=== PATIENT | male | born 1955 | race Caucasian/White ===

== ENCOUNTER 2019-03-15 13:04 | Emergency (ER) | payer MEDICAID ==
[~2019-03-15] VITALS: Ht 165.1 cm; Wt 72.6 kg
--- OUTSIDE RECORDS SUMMARY | 2019-03-15 13:08 | XMS REPORT | CCD ---
Author Author ARELI MADRID Organization Unknown Address [address] [facility] [address] [place] [address] Care Team Providers Care Accounts Receivable Manager Name Role Phone MONTAGUE ER, MAGGY DO Attphys MONTAGUE ER, MAGGY DO Prisurg Allergies Allergy Code Allergy Type Reaction Status FRANNY [id number] Drug allergy Active Active Medications Unknown or Not Available. Problems Unknown or Not Available. Procedures Unknown or Not Available. Results Unknown or Not Available. Encounters Encounter Diagnosis Diagnosis Code Start Date Encounter for examination and observation following other accident [id number] 03/13/2017 Function Status Unknown or Not Available. History of Immunizations Immunization Code Date Td (adult), adsorbed 09 02/09/2001 influenza, split (incl. purified surface antigen) 15 09/30/2004 influenza, split (incl. purified surface antigen) 15 11/12/2005 influenza, split (incl. purified surface antigen) 15 10/12/2006 influenza, split (incl. purified surface antigen) 15 09/29/2007 influenza, split (incl. purified surface antigen) 15 10/05/2008 influenza, split (incl. purified surface antigen) 15 11/01/2009 Novel [id number] 12/13/2009 Social History Smoking Status Code Start Date End Date Never smoker [id number] Vital Signs Unknown or Not Available. Function Status Unknown or Not Available. Goals Unknown or Not Available. ASSESSMENTS Unknown or Not Available. Health Concerns Section Unknown or Not Available.
--- OUTSIDE RECORDS SUMMARY | 2019-03-15 13:10 | XMS REPORT ---
Author Author WALTER OSBORNE [facility] Address [address] [place], [place] [id number] Care Team Providers Care Fast Food Attendant Name Role Phone WALTER OSBORNE PCP WALTER OSBORNE PreferredProvider Allergies and Adverse Reactions Name Reaction Notes Cogentin Plan of Treatment Planned Activity Comments Planned Date Planned Time Plan/Goal CMP 04/19/2018 12:00 AM .Lipid Panel 04/19/2018 12:00 AM Bone Density 09/13/2013 12:00 AM Medications Active Name Start Date Estimated Completion Date SIG Comments chlorhexidine gluconate 0.12 % mucous membrane mouthwash Debrox 6.5 % otic drops instill 5 drops in affected ear 2 times a day Instill 5 drops in each ear BID on the first 5 days of each month for cercumen Seroquel XR 200 mg oral tablet extended release 24 hr take 1 tablet by oral route daily quetiapine 50 mg oral tablet 01/05/2014 take 1 tablet by oral route daily Ensure oral liquid 08/06/2016 Take one can by oral rout twice a day Singulair 10 mg oral tablet 09/16/2017 take 1 tablet (10 mg) by oral route once daily Thera-Tabs Oral Tablet 10/01/2017 take 1 tablet by oral route daily lorazepam 1 mg oral tablet 10/20/2017 Take one tablet prior to dental procedures. Miralax 17 gram/dose oral powder 12/22/2017 take 17 gram mixed with 8 oz. water, juice, soda, coffee or tea by oral route once daily lcwkbpga-[id number]-SW 3.5-10,000-1 mg/mL-unit/mL-% otic (ear) drops,suspension 03/10/2018 instill 4 drops into affected ear(s) by otic route 3 times per day quetiapine 200 mg oral tablet Take 1 tablet every evening for intermittent explosive do alendronate 10 mg oral tablet 08/04/2018 TAKE 1 TABLET BY MOUTH EVERY MORNING WITH 6- 8 OZ OF WATER BEFORE 1ST FOOD/DRINK OF DAY- REMAIN UPRIGHT FOR 30 MIN AFTER ADMINISTRATION montelukast 10 mg oral tablet 08/04/2018 TAKE 1 TABLET BY MOUTH ONCE DAILY FOR ALLERGIC RHINITIS lisinopril-hydrochlorothiazide 20-12.5 mg oral tablet 10/04/2018 TAKE 1 TABLET BY MOUTH ONCE DAILY FOR HTN Therems oral tablet 10/04/2018 TAKE 1 TABLET BY MOUTH ONCE DAILY FOR NUTRITIONAL SUPPLEMENT mupirocin 2 % topical ointment 11/08/2018 APPLY TO OPEN AREA ON WRISTS TWICE DAILY NEEDED COVER WITH KERLIX, SELF ADHERING WRAP WHEN OPEN AREAS PRESENT Remedy Skin Repair 1.5 % topical cream 11/08/2018 USE DIRECTED NEEDED diazepam 5 mg Oral tablet 11/09/2018 take 2 tablets (10 mg) by oral route 1 hour prior to appt may take 1 tablet 30 min prior to appt as needed for anxiety Ambien 10 mg oral tablet 12/02/2018 05/31/2019 take 1 tablet (10 mg) by oral route once daily at bedtime for 30 days mupirocin calcium 2 % topical cream 12/28/2018 apply a small amount to the affected area by topical route 3 times per day Name Start Date Expiration Date SIG Comments diazepam 10 mg oral tablet 10/12/2013 10/12/2013 Take one tablet by mouth 1 hour prior to dental/medical appointment. May reapeat additional 1/2 tabet (5 mg ) 30 minutes prior to the appoinment if needed. cephalexin 500 mg oral capsule 03/08/2014 03/18/2014 take 1 capsule (500 mg) by oral route every 6 hours for 10 days Augmentin 500-125 mg oral tablet 05/01/2014 05/08/2014 take 1 tablet by oral route every 12 hours for 7 days Cipro 500 mg oral tablet 03/10/2018 03/20/2018 take 1 tablet (500 mg) by oral route every 12 hours for 10 days Bactrim DS 800-160 mg oral tablet 12/28/2018 01/07/2019 take 1 tablet by oral route 2 times a day for 10 days Medrol (Tai) 4 mg oral tablets,dose pack 01/06/2019 01/11/2019 take as directed for 5 days Discontinued Name Start Date Discontinued Date SIG Comments lisinopril 20 mg oral tablet 09/25/2010 01/05/2014 take 1 tablet (20 mg) by oral route once daily cephalexin 500 mg oral capsule 04/09/2015 06/28/2018 take 1 capsule (500 mg) by oral route every 12 hours Problem List Description Status Onset Generalized Spacicity Active Impulse Control Active Dysphagia Active Osteopenia Active Constipation Active 08/25/2013 Osteoporosis Active Urinary Incontinence Active Functional urinary incontinence Active Profound mental retardation Active Impulse control disorder Active 03/27/2014 Essential hypertension Active 10/23/2016 Explosive personality disorder Active 10/23/2016 Vital Signs Date Time BP-Sys(mm[Hg] BP-Shelly(mm[Hg]) HR(bpm) RR(rpm) Temp WT HT HC BMI BSA BMI Percentile O2 Sat(%) 01/25/2019 4:11:00 PM 110 mmHg 62 mmHg 64 bpm 16 rpm 98 F 160 lbs 65 in 26.6251 kg/m 1.8244 m 98 % 01/09/2019 11:47:00 AM 110 mmHg 72 mmHg 82 bpm 18 rpm 98.4 F 160 lbs 66 in 25.8244 kg/m 1.84 m2 98 % 01/06/2019 10:54:00 AM 110 mmHg 74 mmHg 82 bpm 18 rpm 98.1 F 165 lbs 68 in 25.09 kg/m2 1.89 m2 98 % 01/03/2019 11:01:00 AM 112 mmHg 68 mmHg 78 bpm 16 rpm 98.4 F 160 lbs 98 % 12/28/2018 9:19:00 AM 124 mmHg 78 mmHg 82 bpm 18 rpm 98.1 F 160 lbs 66 in 25.8244 kg/m 1.8384 m 97 % 04/19/2018 1:49:00 PM 104 mmHg 70 mmHg 94 bpm 16 rpm 97.8 F 158 lbs 98 % 07/29/2017 3:33:00 PM 115 mmHg 74 mmHg 68 bpm 16 rpm 98 F 178 lbs 98 % 05/10/2017 3:35:00 PM 118 mmHg 74 mmHg 94 bpm 16 rpm 98 F 150 lbs 65 in 24.9611 kg/m 1.7665 m 97 % 10/08/2016 4:06:00 PM 88 bpm 16 rpm 96.5 F 129 lbs 65 in 21.47 kg/m2 1.64 m2 98 % 08/06/2016 10:45:00 AM 84 bpm 16 rpm 98.2 F 120.375 lbs 100 % 08/04/2016 6:47:00 AM 118 mmHg 62 mmHg 90 bpm 16 rpm 98 F 120 lbs 65 in 19.9688 kg/m 1.58 m 96 % 05/26/2016 10:28:00 AM 118 mmHg 62 mmHg 84 bpm 16 rpm 98.3 F 125 lbs 65 in 20.80 kg/m2 1.61 m2 98 % 05/14/2015 3:08:00 PM 100 mmHg 70 mmHg 80 bpm 18 rpm 97.9 F 151 lbs 65 in 25.1275 kg/m 1.7723 m 97 % 03/27/2014 10:39:00 AM 110 mmHg 64 mmHg 80 bpm 24 rpm 97.2 F 146 lbs 65 in 24.30 kg/m2 1.74 m2 98 % 01/05/2014 1:52:00 PM 118 mmHg 70 mmHg 96 bpm 20 rpm 97.3 F 150 lbs 65 in 24.9611 kg/m 1.7665 m 98 % 08/24/2013 1:30:00 PM 130 mmHg 80 mmHg 82 bpm 18 rpm 98.4 F 158 lbs 65 in 26.29 kg/m2 1.81 m2 07/17/2013 3:41:00 PM 150 mmHg 80 mmHg 120 bpm 24 rpm 97.8 F 154 lbs 65 in 25.6267 kg/m 1.7899 m 96 % 06/07/2013 10:13:00 AM 150 mmHg 70 mmHg 98 bpm 24 rpm 96.9 F 159.437 lbs 65 in 26.53 kg/m2 1.82 m2 96 % 06/28/2012 10:13:00 AM 115 mmHg 77 mmHg 82 bpm 20 rpm 135.5 lbs 65 in 22.5481 kg/m 1.6789 m 03/22/2012 9:59:00 AM 104 mmHg 64 mmHg 82 bpm 137 lbs 65 in 22.80 kg/m2 1.69 m2 95 % 12/30/2011 10:07:00 AM 118 mmHg 82 mmHg 82 bpm 141 lbs 65 in 23.4634 kg/m 1.7126 m 97 % 09/30/2011 9:51:00 AM 110 mmHg 72 mmHg 86 bpm 147 lbs 65 in 24.46 kg/m2 1.75 m2 98 % 06/11/2011 9:54:00 AM 132 mmHg 78 mmHg 110 bpm 155 lbs 98 % 02/04/2011 10:18:00 AM 132 mmHg 80 mmHg 84 bpm 161 lbs 98 % 12/25/2010 9:38:00 AM 150 mmHg 92 mmHg 84 bpm 161 lbs 09/25/2010 10:22:00 AM 140 mmHg 84 mmHg 84 bpm 98 % 09/02/2010 10:44:00 AM 150 mmHg 92 mmHg 90 bpm 158 lbs 07/18/2010 10:01:00 AM 140 mmHg 84 mmHg 90 bpm 150 lbs 96 % 07/02/2010 9:50:00 AM 150 mmHg 86 mmHg 90 bpm 153 lbs 97 % 05/30/2010 9:10:00 AM 128 mmHg 78 mmHg 76 bpm 148 lbs 98 % 05/26/2010 9:42:00 AM 142 mmHg 90 mmHg 88 bpm 148 lbs 98 % 12/04/2009 10:19:00 AM 122 mmHg 74 mmHg 76 bpm 145 lbs Social History Name Description Comments mental retardation lives in assisted living Tobacco Never smoker denies alcohol use History of Procedures Date Ordered Description Order Status 04/19/2018 12:00 AM COMPLETE CBC W/AUTO DIFF WBC Returned 12/01/2018 12:00 AM INFLUENZA A/B AG EIA Returned 07/26/2013 12:00 AM X-RAY EXAM OF ABDOMEN Reviewed 07/26/2013 12:[address] PELVIS W/O & W/DYE Reviewed 07/26/2013 12:[address] ABDOMEN W/O & W/DYE Reviewed 08/01/2013 12:00 AM CHEST X-RAY 2VW FRONTAL&LATL Reviewed 08/01/2013 12:00 AM X-RAY EXAM OF ABDOMEN Reviewed 08/04/2013 12:00 AM DXA BONE DENSITY AXIAL Reviewed 07/22/2010 12:00 AM REMOVE IMPACTED EAR WAX UNI Reviewed Results Summary Not available. History Of Immunizations Not available. History of Past Illness Name Date of Onset Comments Urinary Incontinence Dec 04 2009 10:21AM Impulse control disorder, unspecified Dec 04 2009 10:21AM Profound mental retardation Dec 04 2009 10:21AM Impulse Control Generalized Spacicity Essential Hypertension May 26 2010 9:44AM General Medical Exam, Adult May 26 2010 9:44AM Seasonal Allergies May 26 2010 9:44AM Follow-Up Examination May 26 2010 9:44AM Essential Hypertension May 30 2010 9:12AM Follow-Up Examination May 30 2010 9:12AM Impulse control disorder, unspecified May 30 2010 9:12AM Profound mental retardation May 30 2010 9:12AM Dysphagia Osteopenia Essential Hypertension Jul 02 2010 9:52AM Cerumen Impaction Jul 02 2010 9:52AM Constipation 08/25/2013 Osteoporosis Urinary Incontinence Essential Hypertension Jul 18 2010 10:03AM Cerumen Impaction Jul 18 2010 10:03AM Cerumen Impaction Jul 22 2010 10:00AM Functional urinary incontinence Profound mental retardation Impulse control disorder 03/27/2014 Essential Hypertension Sep 02 2010 10:45AM Follow-Up Examination Sep 02 2010 10:45AM Cerumen Impaction Sep 02 2010 10:45AM Essential Hypertension Sep 25 2010 10:22AM Essential Hypertension Dec 25 2010 9:37AM Impulse control disorder, unspecified Dec 25 2010 9:37AM Essential Hypertension Feb 04 2011 10:19AM Follow-Up Examination Feb 04 2011 10:19AM Cerumen Impaction Feb 04 2011 10:19AM Impulse control disorder, unspecified Feb 04 2011 10:19AM Essential hypertension 10/23/2016 Explosive personality disorder 10/23/2016 Essential Hypertension Jun 11 2011 9:53AM Impulse control disorder, unspecified Jun 11 2011 9:53AM Essential Hypertension Sep 30 2011 9:48AM Essential Hypertension Dec 30 2011 10:08AM Follow-Up Examination Dec 30 2011 10:08AM Essential Hypertension Mar 22 2012 10:01AM General Medical Exam, Adult Mar 22 2012 10:01AM Impulse control disorder, unspecified Mar 22 2012 10:01AM Cerumen Impaction Mar 22 2012 10:01AM Mental Retardation Mar 22 2012 10:01AM Essential Hypertension Jun 28 2012 10:15AM Insomnia Jun 28 2012 10:15AM Intermittent explosive disorder Jun 28 2012 10:15AM Mental Retardation Jun 28 2012 10:15AM Cerumen Impaction Jun 28 2012 10:15AM Impulse control disorder Jun 07 2013 10:13AM Urinary Incontinence Jun 07 2013 10:13AM Profound mental retardation Jun 07 2013 10:13AM Pain in joint; Knee,right Jul 17 2013 3:42PM MentalRetardation:Congenital Jul 17 2013 3:42PM Constipation Jul 26 2013 9:01AM Abdominal Pain Jul 26 2013 10:13AM Constipation Jul 26 2013 10:13AM Nonspecific (abnormal) findings on radiological and other examination of gastrointestinal tract Jul 26 2013 10:13AM Pleural Effusion Aug 01 2013 12:10PM Constipation Aug 01 2013 12:10PM Osteopenia Aug 04 2013 2:30PM Constipation Aug 24 2013 1:30PM Osteopenia Aug 24 2013 1:30PM Profound mental retardation Jan 05 2014 1:52PM Foot Contusion Jan 05 2014 1:52PM Dysphagia Mar 27 2014 10:40AM Osteoporosis Mar 27 2014 10:40AM Functional urinary incontinence Mar 27 2014 10:40AM Profound mental retardation Mar 27 2014 10:40AM Impulse control disorder Mar 27 2014 10:40AM Constipation May 14 2015 3:08PM Impulse control disorder May 14 2015 3:08PM Osteoporosis May 14 2015 3:08PM Functional urinary incontinence May 14 2015 3:08PM Profound mental retardation May 14 2015 3:08PM Slow transit constipation May 26 2016 10:29AM Impulse control disorder May 26 2016 10:29AM Dysphagia May 26 2016 10:29AM Osteopenia May 26 2016 10:29AM Urinary Incontinence May 26 2016 10:29AM Profound mental retardation May 26 2016 10:29AM Pressure sore of hip, left, stage I Aug 04 2016 6:48AM Pressure sore, stage I Aug 06 2016 10:45AM Impulse control disorder Aug 06 2016 10:45AM Profound mental retardation Aug 06 2016 10:45AM Essential Hypertension Oct 08 2016 4:07PM Constipation Oct 08 2016 4:07PM Impulse control disorder Oct 08 2016 4:07PM Functional urinary incontinence Oct 08 2016 4:07PM Profound mental retardation Oct 08 2016 4:07PM Chronic Explosive personality disorder Stable Oct 08 2016 4:07PM Encounter for routine adult health examination without abnormal findings May 10 2017 3:35PM Knee abrasion, right, initial encounter Jul 29 2017 3:33PM Unspecified fall, initial encounter Jul 29 2017 3:33PM Unspecified place in other non-institutional residence as the place of occurrence of the external cause Jul 29 2017 3:33PM Constipation Apr 19 2018 10:40AM Essential hypertension Apr 19 2018 10:40AM Dysphagia Apr 19 2018 10:40AM Prostate cancer screening Apr 19 2018 10:40AM Encounter for routine adult health examination without abnormal findings Apr 19 2018 1:51PM Essential hypertension Apr 19 2018 1:51PM Explosive personality disorder Apr 19 2018 1:51PM Impulse control disorder Apr 19 2018 1:51PM Functional urinary incontinence Apr 19 2018 1:51PM Profound mental retardation Apr 19 2018 1:51PM Cough Dec 01 2018 11:34AM Cellulitis of other specified site Dec 28 2018 9:23AM Cellulitis of face Jan 03 2019 11:01AM Tinea pedis of both feet Jan 03 2019 11:01AM Cellulitis of face Jan 06 2019 10:54AM Allergic angioedema, initial encounter Jan 06 2019 10:54AM Cellulitis of face Jan 09 2019 11:49AM Encounter for routine adult health examination without abnormal findings Jan 25 2019 4:12PM Essential hypertension Jan 25 2019 4:12PM Explosive personality disorder Jan 25 2019 4:12PM Impulse control disorder Jan 25 2019 4:12PM Functional urinary incontinence Jan 25 2019 4:12PM Profound mental retardation Jan 25 2019 4:12PM Payers Insurance Name Company Name Plan Name Plan Number Policy Number Policy Group Number Start Date [employer] Better [employer] - RHC [employer] - RHC [id number] N/A [place] Prog [id number] N/A [employer] - [place] [employer] [place] [id number] N/A [facility] - [facility] - [facility] Plan [facility] Comm [id number] Thursday, 2012 [employer] - [place] [employer] [place] [id number] N/A [employer] Better [employer] [id number] N/A History of Encounters Visit Date Visit Type Provider 01/24/2019 Office visit WALTER YOUSSEF 01/09/2019 Office visit WALTER YOUSSEF 01/06/2019 Office visit WALTER YOUSSEF 01/03/2019 Office visit WALTER YOUSSEF 12/28/2018 Office visit WALTER YOUSSEF 12/01/2018 Office visit WALTER YOUSSEF 04/19/2018 Office visit WALTER YOUSSEF 07/29/2017 Office visit WALTER YOUSSEF 05/10/2017 Office visit WALTER YOUSSEF 10/08/2016 Office visit WALTER YOUSSEF 08/06/2016 Office visit WALTER YOUSSEF 07/30/2016 Office visit WALTER YOUSSEF 05/26/2016 Office visit WALTER YOUSSEF 05/14/2015 Office visit WALTER YOUSSEF 03/27/2014 Office visit WALTER YOUSSEF 01/05/2014 Office visit WALTER YOUSSEF 08/24/2013 Office visit WALTER OSBORNE PA 07/17/2013 Office visit WALTER OSBORNE PA 06/07/2013 Office visit WALTER OSBORNE PA 06/28/2012 Office visit WALTER OSBORNE PA 03/22/2012 Office visit WALTER OSBORNE PA 12/30/2011 Office visit WALTER OSBORNE PA 09/30/2011 Office visit WALTER OSBORNE PA 06/11/2011 Office visit Walter Osborne PA-C 05/12/2011 Office visit Walter Osborne PA-C 02/04/2011 Office visit Walter Osborne PA-C 12/25/2010 Office visit Walter Osborne PA-C 09/25/2010 Office visit Walter Osborne PA-C 09/02/2010 Office visit Walter Osborne PA-C 07/22/2010 Office visit Walter Osborne PA-C 07/18/2010 Office visit Walter Osborne PA-C 07/07/2010 Office visit Walter Osborne PA-C 07/02/2010 Office visit Walter Osborne PA-C 05/30/2010 Office visit Walter Osborne PA-C 05/26/2010 Office visit Walter Osborne PA-C 12/04/2009 Office visit Walter Osborne PA-C
--- OUTSIDE RECORDS SUMMARY | 2019-03-15 13:10 | XMS REPORT ---
Author Author WALTER OSBORNE [facility] Address [address] [place], [place] [id number] Care Team Providers Care Cleater Name Role Phone WALTER OSBORNE PCP WALTER [...] or tea by oral route once daily ekmfrufy-kgplmwgao-ZA 3.5-10,000-1 mg/mL-unit/mL-% otic (ear) drops,suspension 03/10/2018 instill [...] HC BMI BSA BMI Percentile O2 Sat(%) 01/09/2019 11:47:00 AM 110 mmHg 72 mmHg 82 bpm 18 rpm 98.4 F 160 lbs 66 in 25.8244 kg/m 1.8384 m 98 % 01/06/2019 10:54:00 AM 110 mmHg [...] Cellulitis of face Jan 09 2019 11:49AM Payers Insurance Name Company Name Plan Name Plan Number Policy Number Policy Group Number Start Date [employer] Better [employer] - RHC [employer] - RHC [id number] N/A [place] [employer] [place] Pro[place] [id number] N/A [employer] - [place] State Plan [employer] - [place] State Plan [id number] N/A [facility] - RHC - [facility] Plan [facility] RHC Comm [id number] Thursday, 2012 [employer] - [place] State Plan [employer] - [place] State Plan [id number] N/A [employer] Better [employer] Better [employer] [id number] N/A History of Encounters Visit Date Visit Type Provider 01/09/2019 Office visit WALTER YOUSSEF 01/06/2019 Office [...] visit WALTER YOUSSEF 08/24/2013 Office visit WALTER YOUSSEF 07/17/2013 Office visit WALTER YOUSSEF 06/07/2013 Office visit WALTER YOUSSEF 06/28/2012 Office visit WALTER YOUSSEF 03/22/2012 Office visit WALTER YOUSSEF 12/30/2011 Office visit WALTER YOUSSEF 09/30/2011 Office visit WALTER OSBORNE PA 06/11/2011 [...] visit Walter Osborne PA-C 05/30/2010 Office visit Wlater Osborne PA-C 05/26/2010 Office visit Walter Osborne PA-C 12/04/2009 Office visit Walter YOUSSEF-C
--- OUTSIDE RECORDS SUMMARY | 2019-03-15 13:11 | XMS REPORT ---
Author Author WALTER OSBORNE [facility] Address [address] [place], [place] [id number] Care Team Providers Care Special Collections Librarian Name Role Phone WALTER OSBORNE PCP WALTER [...] or tea by oral route once daily fljmvnbh-wngmiklac-GT 3.5-10,000-1 mg/mL-unit/mL-% otic (ear) drops,suspension 03/10/2018 instill [...] once daily at bedtime for 30 days Bactrim DS 800-160 mg oral tablet 12/28/2018 01/07/2019 take 1 tablet by oral route 2 times a day for 10 days mupirocin calcium 2 % topical cream 12/28/2018 apply a small amount to the affected area by topical route 3 times per day Medrol (Tai) 4 mg oral tablets,dose pack 01/06/2019 01/11/2019 take as directed for 5 days Name Start Date Expiration Date SIG Comments [...] route every 12 hours for 10 days Discontinued Name Start Date Discontinued Date [...] HC BMI BSA BMI Percentile O2 Sat(%) 01/06/2019 10:54:00 AM 110 mmHg 74 mmHg 82 bpm 18 rpm 98.1 F 165 lbs 68 in 25.0879 kg/m 1.8949 m 98 % 01/03/2019 11:01:00 AM 112 mmHg [...] angioedema, initial encounter Jan 06 2019 10:54AM Payers Insurance Name Company Name Plan Name Plan Number Policy Number Policy Group Number [facility] [id number] N/A [place] [facility] [place] [id number] N/A [employer] - [place] State Plan [employer] [place] [id number] N/A [facility] [id number] Thursday, 2012 [employer] - [place] State [place] [employer] [place] [id number] N/A History of Encounters Visit Date Visit Type Provider 01/06/2019 Office visit WALTER OSBORNE PA 01/03/2019 Office visit WALTER OSBORNE PA 12/28/2018 Office visit WALTER OSBORNE PA 12/01/2018 Office visit WALTER OSBORNE PA 04/19/2018 Office visit WALTER OSBORNE PA 07/29/2017 Office visit WALTER OSBORNE PA 05/10/2017 Office visit WALTER OSBORNE PA 10/08/2016 Office visit WALTER OSBORNE PA 08/06/2016 Office visit WALTER OSBORNE PA 07/30/2016 Office visit WALTER OSBORNE PA 05/26/2016 Office visit WALTER OSBORNE PA 05/14/2015 Office visit WALTER OSBORNE PA 03/27/2014 Office visit WALTER OSBORNE PA 01/05/2014 Office visit WALTER OSBORNE PA 08/24/2013 Office visit WALTER OSBORNE PA 07/17/2013 [...] visit Walter Osborne PA-C 09/02/2010 Office visit Wlater Osborne PA-C 07/22/2010 Office visit Walter Osborne PA-C 07/18/2010 Office visit Walter Osborne PA-C 07/07/2010 Office visit Walter Osborne PA-C 07/02/2010 Office visit Walter Osborne PA-C 05/30/2010 Office visit Walter Osborne PA-C 05/26/2010 Office visit Walter Osborne PA-C 12/04/2009 Office visit Walter Osborne PA-C
--- OUTSIDE RECORDS SUMMARY | 2019-03-15 13:12 | XMS REPORT ---
Author Author JOSSY OSBORNE [facility] Address [address] [place], [place] [id number] Care Team Providers Care Child Psychologist Name Role Phone JOSSY OSBORNE PCP JOSSY OSBORNE PreferredProvider Allergies and Adverse Reactions Name [...] or tea by oral route once daily owjdraxm-jvffegcbm-MN 3.5-10,000-1 mg/mL-unit/mL-% otic (ear) drops,suspension 03/10/2018 instill [...] HC BMI BSA BMI Percentile O2 Sat(%) 12/28/2018 9:19:00 AM 124 mmHg 78 mmHg [...] other specified site Dec 28 2018 9:23AM Payers Insurance Name Company Name Plan Name Plan Number Policy Number Policy Group Number Start Date [employer] Better Health [employer] Better [employer] [id number] N/A [place] [id number] N/A [facility] [place] [employer] - [facility] State Plan [id number] N/A [facility] Plan [facility] Comm [id number] Thursday, 2012 [employer] - [facility] - [place] State Plan [employer] - [facility] State Plan [id number] N/A History of Encounters Visit Date Visit Type Provider 12/28/2018 Office visit JOSSY YOUSSEF 12/01/2018 Office visit JOSSY YOUSSEF 04/19/2018 Office visit JOSSY YOUSSEF 07/29/2017 Office visit JOSSY OSBORNE PA 05/10/2017 Office visit JOSSY OSBORNE PA 10/08/2016 Office visit JOSSY OSBORNE PA 08/06/2016 Office visit JOSSY OSBORNE PA 07/30/2016 Office visit JOSSY OSBORNE PA 05/26/2016 Office visit JOSSY OSBORNE PA 05/14/2015 Office visit JOSSY OSBORNE PA 03/27/2014 Office visit JOSSY OSBORNE PA 01/05/2014 Office visit JOSSY OSBORNE PA 08/24/2013 Office visit JOSSY OSBORNE PA 07/17/2013 Office visit JOSSY OSBORNE PA 06/07/2013 Office visit JOSSY OSBORNE PA 06/28/2012 Office visit JOSSY OSBORNE PA 03/22/2012 Office visit JOSSY OSBORNE PA 12/30/2011 Office visit JOSSY OSBORNE PA 09/30/2011 Office visit JOSSY OSBORNE PA 06/11/2011 Office visit Jossy Osborne PA-C 05/12/2011 Office visit Jossy Osborne PA-C 02/04/2011 Office visit Jossy Osborne PA-C 12/25/2010 Office visit Jossy Osobrne PA-C 09/25/2010 Office visit Jossy Osborne PA-C 09/02/2010 Office visit Jossy Osborne PA-C 07/22/2010 Office visit Jossy Osborne PA-C 07/18/2010 Office visit Jossy Osborne PA-C 07/07/2010 Office visit Jossy Osborne PA-C 07/02/2010 Office visit Jossy Osborne PA-C 05/30/2010 Office visit Jossy Osborne PA-C 05/26/2010 Office visit Jossy Osborne PA-C 12/04/2009 Office visit Jossy Osborne PA-C
--- OUTSIDE RECORDS SUMMARY | 2019-03-15 13:12 | XMS REPORT ---
Author Author WALTER OSBORNE [facility] Address [address] [place], [place] [id number] Care Team Providers Care Shredder/Granulator Operator Name Role Phone WALTER OSBORNE PCP WALTER [...] or tea by oral route once daily nakoizdc-hewthgjah-LY 3.5-10,000-1 mg/mL-unit/mL-% otic (ear) drops,suspension 03/10/2018 instill [...] specified site Dec 28 2018 9:23AM Cellulitis Jan 03 2019 11:01AM Tinea pedis Jan 03 2019 11:01AM Cellulitis of face Jan 06 2019 10:54AM Allergic angioedema, initial encounter Jan 06 2019 10:54AM Payers Insurance Name Company Name Plan Name Plan Number Policy Number Policy Group Number Start Date [facility] [id number] N/A [place] [facility] [place] Prog [id number] N/A [employer] - [place] State Plan [employer] - [place] State Plan [id number] N/A [facility] [id number] Thursday, 2012 [employer] - [place] [employer] [place] Plan [id number] N/A History of Encounters Visit Date Visit Type Provider 01/06/2019 Office visit WALTER OSBORNE PA 01/03/2019 Office visit WALTER OSBORNE PA 12/28/2018 Office visit WALTER OSBORNE PA 12/01/2018 Office visit WALTER OSBORNE PA 04/19/2018 Office visit WALTER OSBORNE PA 07/29/2017 Office visit WALTER OSBORNE PA 05/10/2017 Office visit WALTER OSBORNE PA 10/08/2016 Office visit WALTER OSBORNE PA 08/06/2016 Office visit WALTER YOUSSEF 07/30/2016 Office visit WALTER OSBORNE PA 05/26/2016 Office visit AWLTER OSBORNE PA 05/14/2015 Office visit WALTER OSBORNE [...]
--- OUTSIDE RECORDS SUMMARY | 2019-03-15 13:13 | XMS REPORT ---
Author Author JOSSY OSBORNE [facility] Address [address] [place], [place] [id number] Care Team Providers Care Winder Fixer Name Role Phone JOSSY OSBORNE PCP JOSSY OSBORNE PreferredProvider Allergies and Adverse Reactions Name Reaction Notes Cogentin Plan of Treatment Planned Activity Comments Planned Date Planned Time Plan/Goal CMP 04/19/2018 12:00 AM .Lipid Panel 04/19/2018 12:00 AM INFLUENZA A & B 12/01/2018 12:00 AM Bone Density 09/13/2013 12:00 AM [...] or tea by oral route once daily cdufseez-vjuamftfv-EP 3.5-10,000-1 mg/mL-unit/mL-% otic (ear) drops,suspension 03/10/2018 instill 4 drops into affected ear(s) by otic route 3 times per day Ambien 10 mg oral tablet 06/27/2018 12/24/2018 take 1 tablet (10 mg) by oral route once daily at bedtime for 30 days quetiapine 200 mg oral tablet Take 1 [...] prior to appt as needed for anxiety Name Start Date Expiration Date SIG Comments [...] HC BMI BSA BMI Percentile O2 Sat(%) 04/19/2018 1:49:00 PM 104 mmHg 70 mmHg [...] AM COMPLETE CBC W/AUTO DIFF WBC Returned 07/26/2013 12:00 AM X-RAY EXAM OF [...] 2018 1:51PM Cough Dec 01 2018 11:34AM Payers Insurance Name Company Name Plan Name Plan Number Policy Number Policy Group Number Start Date [facility] [place] State Plan [facility] State Plan [id number] N/A [place] Medical [place] Program [place] Prog [id number] N/A [facility] [place] State Plan [facility] State Plan [id number] N/A [facility] [id number] Thursday, 2012 History of Encounters Visit Date Visit Type Provider 12/01/2018 Office visit JOSSY YOUSSEF 04/19/2018 Office visit JOSSY YOUSSEF 07/29/2017 Office visit JOSSY YOUSSEF 05/10/2017 Office visit JOSSY YOUSSEF 10/08/2016 Office visit JOSSY YOUSSEF 08/06/2016 Office visit JOSSY YOUSSEF 07/30/2016 Office visit JOSSY YOUSSEF 05/26/2016 Office visit JOSSY YOUSSEF 05/14/2015 Office visit JOSSY YOUSSEF 03/27/2014 Office visit JOSSY YOUSSEF 01/05/2014 Office visit JOSSY YOUSSEF 08/24/2013 Office visit JOSSY YOUSSEF 07/17/2013 Office visit JOSSY YOUSSEF 06/07/2013 Office visit JOSSY YOUSSEF 06/28/2012 Office visit JOSSY OSBORNE PA 03/22/2012 Office visit JOSSY OSBORNE PA 12/30/2011 Office visit JOSSY OSBORNE PA 09/30/2011 Office visit JOSSY OSBORNE PA 06/11/2011 Office visit Jossy Osborne PA-C 05/12/2011 Office visit Jossy Osborne PA-C 02/04/2011 Office visit Jossy Osborne PA-C 12/25/2010 Office visit Jossy Osborne PA-C 09/25/2010 Office visit Jossy Osborne PA-C 09/02/2010 Office visit Jossy Osborne PA-C 07/22/2010 Office visit Jossy Osborne PA-C 07/18/2010 Office visit Jossy Osborne PA-C 07/07/2010 Office visit Jossy Osborne PA-C 07/02/2010 Office visit Jossy Osborne PA-C 05/30/2010 Office visit Jossy Osborne PA-C 05/26/2010 Office visit Jossy Osborne PA-C 12/04/2009 Office visit Jossy Osborne PA-C
--- OUTSIDE RECORDS SUMMARY | 2019-03-15 13:14 | XMS REPORT ---
Author Author JOSSY NORIEGA [facility] Address [address] [place], [place] [phone] Care Team Providers Care Interventional Radiology Rn Name Role Phone JOSSY NORIEGA PCP JOSSY NORIEGA PreferredProvider Allergies and Adverse Reactions Name Reaction Notes Cogentin Plan of Treatment Planned Activity Comments Planned Date Planned Time Plan/Goal CBC with Differential 04/19/2018 12:00 AM CMP 04/19/2018 12:00 AM .Lipid Panel 04/19/2018 12:00 AM Bone Density 09/13/2013 12:00 AM Medications Active Name Start Date Estimated Completion Date SIG Comments chlorhexidine gluconate 0.12 % mucous membrane mouthwash Debrox 6.5 % otic drops instill 5 drops in affected ear 2 times a day Instill 5 drops in each ear BID on the first 5 days of each month for cercumen mupirocin 2 % topical ointment Seroquel XR 200 mg oral tablet extended release 24 hr take 1 tablet by oral route daily quetiapine 50 mg oral tablet 01/05/2014 take 1 tablet by oral route daily cephalexin 500 mg oral capsule 04/09/2015 take 1 capsule (500 mg) by oral route every 12 hours Ensure oral liquid 08/06/2016 Take one can by oral rout twice a day alendronate 10 mg oral tablet 09/07/2017 take 1 tablet (10 mg) by oral route once daily in the morning, at least 30 min before first food, beverage, or medication of day Singulair 10 mg oral tablet 09/16/2017 take 1 tablet (10 mg) by oral route once daily lisinopril-hydrochlorothiazide 20-12.5 mg oral tablet 10/01/2017 take 1 tablet by oral route once daily Thera-Tabs Oral Tablet 10/01/2017 take 1 tablet by oral route daily lorazepam 1 mg oral tablet 10/20/2017 Take one tablet prior to dental procedures. Miralax 17 gram/dose oral powder 12/22/2017 take 17 gram mixed with 8 oz. water, juice, soda, coffee or tea by oral route once daily Ambien 10 mg oral tablet 02/10/2018 08/09/2018 take 1 tablet (10 mg) by oral route once daily at bedtime for 30 days diazepam 5 mg Oral tablet 03/04/2018 take 2 tablets (10 mg) by oral route 1 hour prior to appt may take 1 tablet 30 min prior to appt as needed for anxiety zvyhfaml-kkjbsosky-TR 3.5-10,000-1 mg/mL-unit/mL-% otic (ear) drops,suspension 03/10/2018 instill 4 drops into affected ear(s) by otic route 3 times per day Name Start [...] (20 mg) by oral route once daily Problem List Description Status Onset Generalized Spacicity [...] of Procedures Date Ordered Description Order Status 07/26/2013 12:00 AM X-RAY EXAM OF ABDOMEN [...] Profound mental retardation Apr 19 2018 1:51PM Payers Insurance Name Company Name Plan Name Plan Number Policy Number Policy Group Number Start Date [employer] [place] [employer] [place] [id number] N/A [place] Medical [place] Program [place] Prog [id number] N/A [employer] - [place] [employer] [place] State Plan [id number] N/A [facility] - RHC - [facility] Plan [facility] [id number] Thursday, 2012 History of Encounters Visit Date Visit Type Provider 04/19/2018 Office visit JOSSY YOUSSEF 07/29/2017 Office [...] visit JOSSY YOUSSEF 06/28/2012 Office visit JOSSY YOUSSEF 03/22/2012 Office visit JOSSY YOUSSEF 12/30/2011 Office visit JOSSY YOUSSEF 09/30/2011 Office visit JOSSY NORIEGA PA 06/11/2011 Office visit Jossy Noriega PA-C 05/12/2011 Office visit Jossy YOUSSEF-C 02/04/2011 Office visit Jossy YOUSSEF-C 12/25/2010 Office visit Jossy YOUSSEF-C 09/25/2010 Office visit Jossy YOUSSEF-C 09/02/2010 Office visit Jossy Noriega PA-C 07/22/2010 Office visit Jossy YOUSSEF-C 07/18/2010 Office visit Jossy TYSONC 07/07/2010 Office visit Jossy TYSONC 07/02/2010 Office visit Jossy TYSONC 05/30/2010 Office visit Jossy TYSONC 05/26/2010 Office visit Jossy YOUSSEF-C 12/04/2009 Office visit Jossy Noriega PA-C
--- OUTSIDE RECORDS SUMMARY | 2019-03-15 13:14 | XMS REPORT ---
Author JOSSY Perez [facility] Address [address] [place], [place] [id number] Care Team Providers Care Conveyor Line Battery Charger Name Role Phone JOSSY OSBORNE PCP Unavailable Allergies and Adverse Reactions Name Reaction Notes Cogentin Plan of Treatment Planned Activity Comments Planned Date Planned Time Plan/Goal Bone Density 09/13/2013 12:00 AM Medications Active [...] take 1 tablet by oral route daily diazepam 5 mg oral tablet 06/08/2013 take 2 tablets (10 mg) by oral route 1 hour prior to appt may take 1 tablet 30 min prior to appt as needed for anxiety Miralax 17 gram/dose oral powder 01/05/2014 take 17 gram mixed with 8 oz. water, juice, soda, coffee or tea by oral route once daily quetiapine 50 mg oral tablet 01/05/2014 take 1 tablet by oral route daily cephalexin 500 mg oral capsule 04/09/2015 take 1 capsule (500 mg) by oral route every 12 hours Ambien 10 mg oral tablet 06/08/2016 12/05/2016 take 1 tablet (10 mg) by oral route once daily at bedtime for 30 days Ensure oral liquid 08/06/2016 Take one can by oral rout twice a day lorazepam 1 mg oral tablet 09/02/2016 Take one tablet prior to dental procedures. Singulair 10 mg Oral Tablet 10/16/2016 take 1 tablet (10 mg) by oral route once daily alendronate 10 mg Oral tablet 10/16/2016 take 1 tablet (10 mg) by oral route once daily in the morning, at least 30 min before first food, beverage, or medication of day Thera-Tabs Oral Tablet 10/16/2016 take 1 tablet by oral route daily lisinopril-hydrochlorothiazide 20-12.5 mg oral tablet 10/16/2016 take 1 tablet by oral route once daily Name Start Date Expiration Date SIG Comments [...] route every 12 hours for 7 days Discontinued Name Start Date Discontinued Date SIG Comments lisinopril 20 mg oral tablet 09/25/2010 01/05/2014 take 1 tablet (20 mg) by oral route once daily Problem List Description Status Onset Generalized Spacicity Active Impulse Control Active Dysphagia Active Osteopenia Active Constipation Active 08/25/2013 Osteoporosis Active Urinary Incontinence Active Functional urinary incontinence Active Profound mental retardation Active Impulse control disorder Active 03/27/2014 Essential Hypertension Active 10/23/2016 Explosive personality disorder Active 10/23/2016 Vital Signs Date Time BP-Sys(mm[Hg] BP-Shelly(mm[Hg]) HR(bpm) RR(rpm) Temp WT HT HC BMI BSA BMI Percentile O2 Sat(%) 10/08/2016 4:06:00 PM 88 bpm 16 rpm [...] IMPACTED EAR WAX UNI Reviewed Results Summary Data and Description Results 07/15/2014 9:10 AM GLUCOSE 97.0 mg/dLSODIUM 146.0 mmol/LPOTASSIUM 4.70 mmol/ LCHLORIDE 107.0 mmol/LCO2 29.0 mmol/LBUN 27.0 mg/dLCREATININE 0.90 mg/dLSGOT/ AST 16.0 IU/LSGPT/ALT 20.0 IU/LALK PHOS 97.0 IU/LTOTAL PROTEIN 7.90 g/dLALBUMIN 4.30 g/dLTOTAL BILI 0.80 mg/dLCALCIUM 9.80 mg/dLAGE 58 GFR NonAA 87 GFR AA 105 eGFR 60 eGFR AA* 60 PSA TOTAL 0.490 ng/mLWBC 6.0 RBC 5.16 HGB 14.50 g/dLHCT 44.20 %MCV 86.0 fLMCH 28.10 pgMCHC 32.80 g/dLRDW SD 48 RDW CV 15.20 %MPV 9.80 fLPLT 323 NRBC# 0.00 NRBC% 0.0 History Of Immunizations Not available. History of [...] disorder, unspecified Feb 04 2011 10:19AM Essential Hypertension 10/23/2016 Explosive personality disorder 10/23/2016 Essential Hypertension [...] personality disorder Stable Oct 08 2016 4:07PM Payers Insurance Name Company Name Plan Name Plan Number Policy Number Policy Group Number Start Date [facility] [place] State Plan [facility] State Plan [id number] N/A [place] Medical [place] Program [place] Prog [id number] N/A [employer] - [facility] [place] State Plan [facility] State Plan [id number] N/A [facility] Comm [id number] Thursday, 2012 History of Encounters Visit Date Visit Type Provider 10/08/2016 Office visit JOSSY OSBORNE PA 08/06/2016 [...] JOSSY OSBORNE PA 06/28/2012 Office visit JOSSY OSBOREN PA 03/22/2012 Office visit JOSSY OSBORNE PA [...]
--- OUTSIDE RECORDS SUMMARY | 2019-03-15 13:15 | XMS REPORT ---
Author JOSSY Perez [facility] Address [address] [place], [place] [id number] Care Team Providers Care Lead Developer Name Role Phone JOSSY NORIEGA PCP Unavailable JOSSY NORIEGA PreferredProvider Unavailable Allergies and Adverse Reactions Name Reaction [...] prior to appt as needed for anxiety quetiapine 50 mg oral tablet 01/05/2014 take [...] 1 tablet by oral route once daily Miralax 17 gram/dose oral powder 11/19/2016 take 17 gram mixed with 8 oz. water, juice, soda, coffee or tea by oral route once daily Ambien 10 mg oral tablet 03/31/2017 09/27/2017 take 1 tablet (10 mg) by oral route once daily at bedtime for 30 days Name Start Date Expiration Date SIG [...] HC BMI BSA BMI Percentile O2 Sat(%) 07/29/2017 3:33:00 PM 115 mmHg 74 mmHg [...] the external cause Jul 29 2017 3:33PM Payers Insurance Name Company Name Plan Name Plan Number Policy Number Policy Group Number Start Date [facility] - [facility] [place] State Plan [facility] State Plan [id number] N/A [place] Medical [place] Program [place] Prog [id number] N/A [facility] - [facility] [place] State Plan [facility] [place] Plan [id number] N/A [facility], [facility] Plan [facility] Comm [id number] Thursday, 2012 History of Encounters Visit Date Visit Type Provider 07/29/2017 Office visit JOSSY YOUSSEF 05/10/2017 Office visit JOSSY YOUSSEF 10/08/2016 Office visit JOSSY YOUSSEF 08/06/2016 Office visit JOSSY YOUSSEF 07/30/2016 Office visit JOSSY YOUSSEF 05/26/2016 Office visit JOSSY YOUSSEF 05/14/2015 Office visit JOSSY NORIEGA PA 03/27/2014 Office visit JOSSY NORIEGA PA 01/05/2014 Office visit JOSSY NORIEGA PA 08/24/2013 Office visit JOSSY NORIEGA PA 07/17/2013 Office visit JOSSY NORIEGA PA 06/07/2013 Office visit JOSSY NORIEGA PA 06/28/2012 Office visit JOSSY NORIEGA PA 03/22/2012 Office visit JOSSY NORIEGA PA 12/30/2011 Office visit JOSSY NORIEGA PA 09/30/2011 Office visit JOSSY NORIEGA PA 06/11/2011 Office visit Jossy Noriega PA-C 05/12/2011 Office visit Jossy Noriega PA-C 02/04/2011 Office visit Jossy Noriega PA-C 12/25/2010 Office visit Jossy Noriega PA-C 09/25/2010 Office visit Jossy Noriega PA-C 09/02/2010 Office visit Jossy Noriega PA-C 07/22/2010 Office visit Jossy Noriega PA-C 07/18/2010 Office visit Jossy Noriega PA-C 07/07/2010 Office visit Jossy Noriega PA-C 07/02/2010 Office visit Jossy Noriega PA-C 05/30/2010 Office visit Jossy Noriega PA-C 05/26/2010 Office visit Jossy Noriega PA-C 12/04/2009 Office visit Jossy Noriega PA-C
--- OUTSIDE RECORDS SUMMARY | 2019-03-15 13:16 | XMS REPORT ---
Author Author JOSSY OSBORNE [facility] Address [address] [place], [place] [address] Care Team Providers Care Salt Cutter Name Role Phone JOSSY OSBORNE PCP JOSSY [...] prior to appt as needed for anxiety mffvgwfu-oecednlbm-PB 3.5-10,000-1 mg/mL-unit/mL-% otic (ear) drops,suspension 03/10/2018 instill [...] rpm 98 F 120 lbs 65 in 19.97 kg/m2 1.58 m2 96 % 05/26/2016 10:28:00 AM 118 mmHg [...] Prostate cancer screening Apr 19 2018 10:40AM Payers Insurance Name Company Name Plan Name Plan Number Policy Number Policy Group Number Start Date [facility] - [place] State Plan [facility] [place] State Plan [id number] N/A [place] Medical Assistance Program [place] Medical [place] Prog [id number] N/A [employer] - [place] - [place] State Plan [facility] State Plan [id number] N/A [facility] - [facility]HC - [facility] Comm [id number] Thursday, 2012 History of Encounters Visit Date Visit Type Provider 07/29/2017 Office visit JOSSY OSBORNE PA 05/10/2017 [...]
--- OUTSIDE RECORDS SUMMARY | 2019-03-15 13:16 | XMS REPORT ---
Author Author WALTER OSBORNE [facility] Address [address] [place], [place] [phone] Care Team Providers Care Powerhouse Mechanic Name Role Phone WALTER OSBORNE PCP Unavailable Allergies and Adverse Reactions Name Reaction Notes Cogentin Plan of Treatment Planned Activity Comments Planned Date Planned Time Plan/Goal CT BONE DENSITY AXIAL 09/13/2013 12:00 AM Medications Active Name Start Date Estimated Completion Date SIG Comments chlorhexidine gluconate 0.12 % mucous membrane mouthwash Debrox 6.5 % otic drops instill 5 drops in affected ear 2 times a day Instill 5 drops in each ear BID on the first 5 days of each month for cercumen Singulair 10 mg oral tablet take 1 tablet (10 mg) by oral route once daily Instill 5 drops in each ear BID on the first 5 days of each month for cercumen mupirocin 2 % topical ointment Thera-Tabs Oral Tablet 05/26/2010 take 1 tablet by oral route daily Seroquel XR 200 mg oral tablet extended release 24 hr take 1 tablet by oral route daily diazepam 5 mg oral tablet 06/08/2013 take 2 tablets (10 mg) by oral route 1 hour prior to appt may take 1 tablet 30 min prior to appt as needed for anxiety alendronate 10 mg oral tablet 08/10/2013 take 1 tablet (10 mg) by oral route once daily in the morning, at least 30 min before first food, beverage, or medication of day lisinopril-hydrochlorothiazide 20-12.5 mg oral tablet 01/05/2014 take 1 tablet by oral route once daily Miralax 17 gram/dose oral powder 01/05/2014 take 17 gram mixed with 8 oz. water, juice, soda, coffee or tea by oral route once daily quetiapine 50 mg oral tablet 01/05/2014 take 1 tablet by oral route daily cephalexin 500 mg oral capsule 04/09/2015 take 1 capsule (500 mg) by oral route every 12 hours Ambien 10 mg oral tablet 01/15/2016 07/13/2016 take 1 tablet (10 mg) by oral [...] retardation Active Impulse control disorder Active 03/27/2014 Vital Signs Date Time BP-Sys(mm[Hg] BP-Shelly(mm[Hg]) HR(bpm) RR(rpm) Temp WT HT HC BMI BSA BMI Percentile O2 Sat(%) 05/26/2016 10:28:00 AM 118 mmHg 62 mmHg [...] 08/01/2013 12:00 AM CHEST X-RAY 2VW FRONTAL&LATL Returned 08/01/2013 12:00 AM X-RAY EXAM OF ABDOMEN Returned 08/04/2013 12:00 AM DXA BONE DENSITY AXIAL Returned 07/22/2010 12:00 AM REMOVE IMPACTED EAR WAX UNI Reviewed Results Summary Data and Description Results 07/15/2014 9:10 AM GLUCOSE 97.0 mg/dLSODIUM 146.0 mmol/LPOTASSIUM 4.70 mmol/ LCHLORIDE 107.0 mmol/LCO2 29.0 mmol/LBUN 27.0 mg/dLCREATININE 0.90 mg/dLSGOT/ AST 16.0 IU/LSGPT/ALT 20.0 IU/LALK PHOS 97.0 IU/LTOTAL PROTEIN 7.90 g/dLALBUMIN 4.30 g/dLTOTAL BILI 0.80 mg/dLCALCIUM 9.80 mg/dLeGFR 60 PSA TOTAL 0.490 ng/ mLWBC 6.0 RBC 5.16 HGB 14.50 g/dLHCT 44.20 %MCV 86.0 fLMCH 28.10 pgMCHC 32.80 g/ dLRDW CV 15.20 %MPV 9.80 fLPLT 323 History Of Immunizations Not available. History of [...] unspecified Feb 04 2011 10:19AM Essential Hypertension Jun 11 2011 9:53AM Impulse [...] Profound mental retardation May 26 2016 10:29AM Payers Insurance Name Company Name Plan Name Plan Number Policy Number Policy Group Number Start Date [employer] - [place] - [place] State Plan [employer] - [facility] [place] State Plan [id number] N/A [place] Medical [place] Program [place] Prog [id number] N/A [employer] - [place] - [place] State Plan [employer] - [facility] [place] State Plan [id number] N/A [facility] - [facility] - [facility] [id number] Thursday, 2012 History of Encounters Visit Date Visit Type Provider 05/26/2016 Office visit WALTER YOUSSEF 05/14/2015 Office visit WALTER YOUSSEF 03/27/2014 Office visit WALTER YOUSSEF 01/05/2014 Office visit WALTER YOUSSEF 08/24/2013 Office visit WALTER YOUSSEF 07/17/2013 Office visit WALTER YOUSSEF 06/07/2013 Office visit WALTER YOUSSEF 06/28/2012 Office visit WALTER YOUSSEF 03/22/2012 Office visit WALTER YOUSSEF 12/30/2011 Office visit WALTER YOUSSEF 09/30/2011 Office visit WALTER YOUSSEF 06/11/2011 Office visit Walter YOUSSEF-C 05/12/2011 Office visit Walter YOUSSEF-C 02/04/2011 Office visit Walter YOUSSEF-C 12/25/2010 Office visit Walter YOUSSEF-C 09/25/2010 Office visit Walter YOUSSEF-C 09/02/2010 Office visit Walter YOUSSEF-C 07/22/2010 Office visit Walter YOUSSEF-C 07/18/2010 Office visit Walter YOUSSEF-C 07/07/2010 Office visit Walter YOUSSEF-C 07/02/2010 Office visit Walter YOUSSEFEva 05/30/2010 Office visit Walter Osborne PA-C 05/26/2010 Office visit Walter Osborne PA-C 12/04/2009 Office visit Walter Osborne PA-C
--- OUTSIDE RECORDS SUMMARY | 2019-03-15 13:17 | XMS REPORT ---
Author Author JOSSY OSBORNE [facility] Address [address] [place], [place] [id number] Care Team Providers Care Tank Systems Maintainer Name Role Phone JOSSY OSBORNE PCP Unavailable [...] can by oral rout twice a day Name Start Date Expiration Date SIG [...] HC BMI BSA BMI Percentile O2 Sat(%) 08/06/2016 10:45:00 AM 84 bpm 16 rpm [...] Profound mental retardation Aug 06 2016 10:45AM Payers Insurance Name Company Name Plan Name Plan Number Policy Number Policy Group Number Start Date [facility] [place] State [place] [facility] State Plan [id number] N/A [place] Medical Assistance Program [place] Medical [place] Prog [id number] N/A [facility] - [facility] [place] State [place] [facility] - [facility] State Plan [id number] N/A [facility] Comm [id number] Thursday, 2012 History of Encounters Visit Date Visit Type Provider 08/06/2016 Office visit JOSSY YOUSSEF 07/30/2016 Office [...] visit JOSSY YOUSSEF 09/30/2011 Office visit JOSSY YOUSSEF 06/11/2011 Office visit Jossy Osborne PA-C 05/12/2011 [...]
--- OUTSIDE RECORDS SUMMARY | 2019-03-15 13:18 | XMS REPORT ---
Author JOSSY Perez [facility] Address [address] [place], [place] [id number] Care Team Providers Care Regional Environmental Manager Name Role Phone JOSSY OSBORNE PCP Unavailable JOSSY OSBORNE PreferredProvider Unavailable Allergies and Adverse Reactions Name [...] HC BMI BSA BMI Percentile O2 Sat(%) 05/10/2017 3:35:00 PM 118 mmHg 74 mmHg 94 bpm 16 rpm 98 F 150 lbs 65 in 24.96 kg/m2 1.77 m2 97 % 10/08/2016 4:06:00 PM 88 bpm 16 rpm 96.5 F 129 lbs 65 in 21.4665 kg/m 1.6381 m 98 % 08/06/2016 10:45:00 AM 84 bpm [...] IMPACTED EAR WAX UNI Reviewed Results Summary Date and Description Results 07/15/2014 9:10 AM GLUCOSE [...] without abnormal findings May 10 2017 3:35PM Payers Insurance Name Company Name Plan Name Plan Number Policy Number Policy Group Number Start Date [facility] [place] [facility] [place] [id number] N/A [place] [facility] [employer] [facility] [place] [employer] [place] Pro [id number] N/A [employer] - [place] - [place] State Plan [employer] - [place] State Plan [id number] N/A [facility] - [facility] - Community Plan [facility] Comm [id number] Thursday, 2012 History of Encounters Visit Date Visit Type Provider 05/10/2017 Office visit JOSSY OSBORNE PA 10/08/2016 [...]
--- OUTSIDE RECORDS SUMMARY | 2019-03-15 13:18 | XMS REPORT ---
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 Name Role Phone JOSSY OSBORNE PCP Unavailable [...] HC BMI BSA BMI Percentile O2 Sat(%) 08/04/2016 6:47:00 AM 118 mmHg 62 mmHg 90 bpm 16 rpm 98 F 120 lbs 65 in 19.97 kg/m2 1.58 m2 96 % 05/26/2016 10:28:00 AM 118 mmHg 62 mmHg 84 bpm 16 rpm 98.3 F 125 lbs 65 in 20.8009 kg/m 1.6125 m 98 % 05/14/2015 3:08:00 PM 100 mmHg 70 mmHg 80 bpm 18 rpm 97.9 F 151 lbs 65 in 25.13 kg/m2 1.77 m2 97 % 03/27/2014 10:39:00 AM 110 mmHg 64 mmHg 80 bpm 24 rpm 97.2 F 146 lbs 65 in 24.2954 kg/m 1.7427 m 98 % 01/05/2014 1:52:00 PM 118 mmHg 70 mmHg 96 bpm 20 rpm 97.3 F 150 lbs 65 in 24.96 kg/m2 1.77 m2 98 % 08/24/2013 1:30:00 PM 130 mmHg 80 mmHg 82 bpm 18 rpm 98.4 F 158 lbs 65 in 26.2923 kg/m 1.8129 m 07/17/2013 3:41:00 PM 150 mmHg 80 mmHg 120 bpm 24 rpm 97.8 F 154 lbs 65 in 25.63 kg/m2 1.79 m2 96 % 06/07/2013 10:13:00 AM 150 mmHg 70 mmHg 98 bpm 24 rpm 96.9 F 159.437 lbs 65 in 26.5315 kg/m 1.8212 m 96 % 06/28/2012 10:13:00 AM 115 mmHg 77 mmHg 82 bpm 20 rpm 135.5 lbs 65 in 22.55 kg/m2 1.68 m2 03/22/2012 9:59:00 AM 104 mmHg 64 mmHg 82 bpm 137 lbs 65 in 22.7978 kg/m 1.6882 m 95 % 12/30/2011 10:07:00 AM 118 mmHg 82 mmHg 82 bpm 141 lbs 65 in 23.46 kg/m2 1.71 m2 97 % 09/30/2011 9:51:00 AM 110 mmHg 72 mmHg 86 bpm 147 lbs 65 in 24.4618 kg/m 1.7487 m 98 % 06/11/2011 9:54:00 AM 132 mmHg [...] left, stage I Aug 04 2016 6:48AM Payers Insurance Name Company Name Plan Name Plan Number Policy Number Policy Group Number Start Date [facility] [address] - [place] State Plan [facility] State Plan [id number] N/A [place] [facility] [place] [facility] [place] Prog [id number] N/A [facility] [address] - [place] State Plan [facility] State Plan [id number] N/A [facility] Comm [id number] Thursday, 2012 History of Encounters Visit Date Visit Type Provider 07/30/2016 Office visit JOSSY YOUSSEF 05/26/2016 Office [...] Jossy Osborne PA-C 09/02/2010 Office visit Jossy YOUSSEF-C 07/22/2010 Office visit Jossy YOUSSEF-C 07/18/2010 Office visit Jossy YOUSSEF-C 07/07/2010 Office visit Jossy YOUSSEF-C 07/02/2010 Office visit Jossy YOUSSEF-C 05/30/2010 Office visit Jossy YOUSSEF-C 05/26/2010 Office visit Jossy YOUSSEF-C 12/04/2009 Office visit Jossy Osborne PA-C
--- OUTSIDE RECORDS SUMMARY | 2019-03-15 13:19 | XMS REPORT ---
Author Author [facility] Organization [facility] Address [address] [place], [place] [phone] Care Team Providers Care Director Funds Development Name Role Phone PCP Unavailable Allergies and Adverse Reactions Name Reaction Notes Cogentin Plan of Treatment Planned Activity Comments Planned Date Planned Time Plan/Goal CT BONE DENSITY AXIAL 09/13/2013 12:00 AM Medications Active Name Start Date Estimated Completion Date SIG Comments Chlorhexidine Gluconate Mucous Membrane Mouthwash 0.12 % Debrox Otic Drops 6.5 % instill 5 drops in affected ear 2 times a day Instill 5 drops in each ear BID on the first 5 days of each month for cercumen Singulair Oral Tablet 10 mg take 1 tablet (10 mg) by oral route once daily Instill 5 drops in each ear BID on the first 5 days of each month for cercumen Mupirocin Topical Ointment 2 % Thera-Tabs Oral Tablet 05/26/2010 take 1 tablet by oral route daily Seroquel XR Oral Tablet Sustained Release 24 hr 200 mg take 1 tablet by oral route daily diazepam Oral tablet 5 mg 06/08/2013 take 2 tablets (10 mg) by oral route 1 hour prior to appt may take 1 tablet 30 min prior to appt as needed for anxiety alendronate Oral tablet 10 mg 08/10/2013 take 1 tablet (10 mg) by oral route once daily in the morning, at least 30 min before first food, beverage, or medication of day lisinopril-hydrochlorothiazide oral tablet 20-12.5 mg 01/05/2014 take 1 tablet by oral route once daily Miralax oral powder 17 gram/dose 01/05/2014 take 17 gram mixed with 8 oz. water, juice, soda, coffee or tea by oral route once daily quetiapine oral tablet 50 mg 01/05/2014 take 1 tablet by oral route daily Ambien Oral Tablet 10 mg 03/20/2015 09/16/2015 take 1 tablet (10 mg) by oral route once daily at bedtime for 30 days cephalexin oral capsule 500 mg 04/09/2015 take 1 capsule (500 mg) by oral route every 12 hours Name Start Date Expiration Date SIG Comments diazepam Oral tablet 10 mg 10/12/2013 10/12/2013 Take one tablet by mouth 1 hour prior to dental/medical appointment. May reapeat additional 1/2 tabet (5 mg ) 30 minutes prior to the appoinment if needed. cephalexin oral capsule 500 mg 03/08/2014 03/18/2014 take 1 capsule (500 mg) by oral route every 6 hours for 10 days Augmentin oral tablet 500-125 mg 05/01/2014 05/08/2014 take 1 tablet by oral route every 12 hours for 7 days Discontinued Name Start Date Discontinued Date SIG Comments Lisinopril Oral Tablet 20 mg 09/25/2010 01/05/2014 take 1 tablet (20 mg) [...] HC BMI BSA BMI Percentile O2 Sat(%) 05/14/2015 3:08:00 PM 100 mmHg 70 mmHg [...] Profound mental retardation May 14 2015 3:08PM Payers Insurance Name Company Name Plan Name Plan Number Policy Number Policy Group Number [facility] Date [facility] [place] State [place] [employer] [place] State Plan [id number] N/A [place] [facility] [place] [facility] [place] [id number] N/A [employer] - [place] State Plan [employer] [place] State Plan [id number] N/A [facility] - [facility] - [facility] Comm [id number] Thursday, 2012 History of Encounters Visit Date Visit Type Provider 05/14/2015 Office visit JOSSY OSBORNE PA 03/27/2014 [...] Jossy Osborne PA-C 09/02/2010 Office visit Jossy sOborne PA-C 07/22/2010 Office visit Jossy Osborne PA-C 07/18/2010 Office visit Jossy Osborne PA-C 07/07/2010 Office visit Jossy Osborne PA-C 07/02/2010 Office visit Jossy Osborne PA-C 05/30/2010 Office visit Jossy Osborne PA-C 05/26/2010 Office visit Jossy Osborne PA-C 12/04/2009 Office visit Jossy Osborne PA-C
--- OUTSIDE RECORDS SUMMARY | 2019-03-15 13:19 | XMS REPORT | Continuity of Care Document ---
Author Organization Unknown Address Unknown Allergies There is no data. Medications There is no data. Problems There is no data. Procedures There is no data. Results There is no data. Encounters ACCT No. Visit Date/Time Discharge Status Pt. Type Provider Facility Loc./Unit Complaint [id number] 01/24/2019 11:37:01 01/24/2019 23:59:59 JOSSY Feliciano [id number] 01/09/2019 11:35:52 01/09/2019 23:59:59 [facility] JOSSY OSBORNE [id number] 01/06/2019 11:07:07 01/06/2019 23:59:59 [facility] JOSSY OSBORNE [id number] 01/03/2019 11:40:09 01/03/2019 23:59:59 [facility] JOSSY OSBORNE [id number] 12/28/2018 09:38:01 12/28/2018 23:59:59 [facility] JOSSY OSBORNE [id number] 12/01/2018 11:42:29 12/01/2018 23:59:59 [facility] JOSSY OSBORNE [id number] 04/19/2018 11:46:13 04/19/2018 23:59:59 JOSSY Feliciano [id number] 07/29/2017 14:11:34 07/29/2017 23:59:59 [facility] JOSSY OSBORNE [id number] 05/10/2017 11:11:28 05/10/2017 23:59:59 [facility] JOSSY OSBORNE [id number] 10/08/2016 10:44:36 10/08/2016 23:59:59 JOSSY Feliciano [id number] 08/06/2016 11:35:28 08/06/2016 23:59:59 [facility] JOSSY OSBORNE [id number] 07/30/2016 14:05:46 07/30/2016 23:59:59 [facility] JOSSY OSBORNE [id number] 05/26/2016 10:41:08 05/26/2016 23:59:59 [facility] JOSSY OSBORNE [id number] 07/08/2015 21:57:11 07/08/2015 23:59:59 [facility] JOSSY OSBORNE [id number] 03/27/2014 11:17:19 03/27/2014 23:59:59 [facility] Outpatient JOSSY OSBORNE [id number] 01/05/2014 09:41:34 01/05/2014 23:59:59 [facility] Outpatient JOSSY OSBORNE
--- NOTE | 2019-03-15 13:25 | NUR ---
SEE LIST FOR CURRENT MEDS
--- NOTE | 2019-03-15 14:22 | ED Head Injury ---
General Chief Complaint: Head/Cervical Problems Stated Complaint: FALL;HEAD INJ Nursing Triage Note: PT AMBULATED TO ROOM 5 PT STAFF STATES FELL AND HIT FILING CABINET, DENIES LOC, NO ABRASIONS OR RAISED AREAS NOTED FROM HITTING HEAD, PT IS MR, PT IS NON-VERBAL. STAFF W PT Source: patient Exam Limitations: no limitations History of Present Illness Date Seen by Provider: Mar 15, 2019 Time Seen by Provider: 14:20 Initial Comments This is nonverbal MR patient presents to ER by caregiver from senior care with reports of falling backwards striking the back of his head against a filing cabinet. No loss of consciousness and behaving normally since the event. Not on blood thinners. Occurred: just prior to arrival Severity: mild Location: occipital Method of Injury: direct blow, fell Loss of Consciousness: no loss of consciousness Allergies and Home Medications Patient Home Medication List Home Medication List Reviewed: Yes Review of Systems Review of Systems Constitutional: see HPI, other (unable to obtain due to nonverbal status) Eyes: No Symptoms Reported Ears, Nose, Mouth, Throat: no symptoms reported Respiratory: no symptoms reported Cardiovascular: no symptoms reported Genitourinary: no symptoms reported Musculoskeletal: no symptoms reported Skin: no symptoms reported Psychiatric/Neurological: No Symptoms Reported Past Acpdgym-Lifiaq-Uqdfor Hx Patient Social History Alcohol Use: Denies Use Recreational Drug Use: No Smoking Status: Never a Smoker Recent Foreign Travel: No Contact w/Someone Who Travel: No Recent Infectious Disease Expo: No Recent Hopitalizations: No Physical Abuse: No Sexual Abuse: No Past Medical History Surgeries: Yes (DENTAL) Respiratory: No Cardiac: No Neurological: Yes (MR) Gastrointestinal: No Musculoskeletal: No Endocrine: No HEENT: No Cancer: No Psychosocial: No Physical Exam Vital Signs Vital Signs - First Documented 03/15/19 13:14 Temp 98.1 Pulse 92 Resp 18 B/P (MAP) 133/99 (110) Pulse Ox 96 Capillary Refill : Less Than 3 Seconds Height, Weight, BMI Height: 5'5.00" Weight: 160lbs. oz. 72.386848vc; BMI Method:Stated General Appearance: WD/WN, no apparent distress HEENT: PERRL/EOMI, normal ENT inspection, TMs normal, other (if there is no scalp hematoma laceration or abrasion seen or palpated) Neck: non-tender, full range of motion Respiratory: no respiratory distress, no accessory muscle use Gastrointestinal: normal bowel sounds, non tender Extremities: normal range of motion, non-tender Psychiatric: alert, oriented x 3 Crainal Nerves: normal hearing, normal speech, PERRL Motor/Sensory: no motor deficit, no sensory deficit Skin: normal color Karen Coma Score Best Eye Response: (4) Open Spontaneously Best Verbal Response: (5) Oriented Best Motor Response: (6) Obeys Commands [place] Total: 15 Progress/Results/Core Measures Results/Orders My Orders Orders - DOLORES BARAKAT APRN Ct Head/Cervical Spine Wo (03/15/19 13:20) Vital Signs/I&O 03/15/19 13:14 Temp 98.1 Pulse 92 Resp 18 B/P (MAP) 133/99 (110) Pulse Ox 96 Blood Pressure Mean: 110 Departure Impression Primary Impression: Minor head injury Qualified Codes: S09.90XA - Unspecified injury of head, initial encounter Disposition: 01 HOME, SELF-CARE Condition: Stable Departure-Patient Inst. Decision time for Depature: 15:13 Patient Instructions: Closed Head Injury DOLORES BARAKAT APRN Mar 15, 2019 14:22
--- NOTE | 2019-03-15 16:13 | Diagnostic Imaging Report ---
PROCEDURE: CT head and CT cervical spine without contrast. TECHNIQUE: Multiple contiguous axial images were obtained through the brain and cervical spine without the use of intravenous contrast. Sagittal and coronal reformations through the cervical spine were then performed. Auto Exposure Controls were utilized during the CT exam to meet ALARA standards for radiation dose reduction. INDICATION: Fall. COMPARISON: No prior studies are available for comparison. CT HEAD: Study is compromised by motion artifact. Ventricles and sulci are within normal limits. No definite midline shift is seen. No acute intra-axial or extra-axial hemorrhage is detected. Cisterns appear to be patent. Visualized paranasal sinuses are clear. IMPRESSION: Limited by motion artifact. No acute intracranial process is detected. CT CERVICAL SPINE: Study is compromised by motion artifact. No definite fracture is seen. There is multilevel degenerative disc disease with variable disc space narrowing and marginal spurring. Prevertebral tissues are normal. Odontoid is intact. IMPRESSION: Limited by motion. No acute bony abnormality is detected. Dictated by: Dictated on workstation # [id number]
[2019-03-15 16:19] VITALS: BP 133/99
== END 2019-03-15 16:19 | disposition home or self-care (01) ==
LOC: EDUNIT# 13:04 → ER 13:05
DX: S09.90XA Unspecified injury of head, initial encounter (principal); R40.2142 Coma scale, eyes open, spontaneous, at arrival to emergency department; R40.2252 Coma scale, best verbal response, oriented, at arrival to emergency department; R40.2362 Coma scale, best motor response, obeys commands, at arrival to emergency department; W01.190A Fall on same level from slipping, tripping and stumbling with subsequent striking against furniture, initial encounter; Y92.199 Unspecified place in other specified residential institution as the place of occurrence of the external cause
CPT/HCPCS: 70450; 72125

== ENCOUNTER 2019-09-25 10:40 | Emergency (ER) | payer MEDICAID ==
[~2019-09-25] VITALS: Ht 165 cm; Wt 72.7 kg
--- NOTE | 2019-09-25 11:15 | ED Fall/Injury ---
General Chief Complaint: Trauma-Non Activation Stated Complaint: HEAD INJ Nursing Triage Note: Patient fell from a standing position while trying to sit down. Per caregiver patient missed the chair and fell backwards striking his head. There was no loss of consciousness and no obvious injuries on head. History of Present Illness Date Seen by Provider: Sep 25, 2019 Time Seen by Provider: 11:05 Initial Comments A 63-year-old male in residential care presents after a fall. He was going to sit when he missed the chair and fell backwards. It was a witnessed fall and there was no loss of consciousness or seizure activity. He has not been nauseated or vomited since then he has very limited verbal response to questions or stimulus. The staff with the patient reports that he had weakness when trying to walk in to the emergency department. Occurred: this morning Injuries/Pain Location: head Loss of Consciousness: no loss of consciousness Associated Symptoms (Fall): Denies Symptoms Allergies and Home Medications Allergies Coded Allergies: benztropine (Verified Allergy, Unknown, 09/25/19) Home Medications Alendronate Sodium 10 Mg Tablet, 10 MG PO DAILY, (Reported) Carbamide Peroxide 15 Ml Drops, 15 ML OT BID, (Reported) Diazepam 10 Mg Tablet, 10 MG PO PRN, (Reported) Lisinopril/Hydrochlorothiazide 1 Each Tablet, 1 EACH PO DAILY, (Reported) Montelukast Sodium 10 Mg Tablet, 10 MG PO DAILY, (Reported) Polyethylene Glycol 3350 17 Gm Powd.pack, 17 GM PO PRN, (Reported) Quetiapine Fumarate 50 Mg Tablet, 50 MG PO DAILY, (Reported) Quetiapine Fumarate 300 Mg Tab.er.24h, 300 MG PO DAILY, (Reported) Terbinafine HCl 15 Gm Cream..g., 15 GM TP DAILY, (Reported) Zolpidem Tartrate 10 Mg Tablet, 10 MG PO DAILY, (Reported) Patient Home Medication List Home Medication List Reviewed: Yes Review of Systems Review of Systems Constitutional: no symptoms reported, see HPI Musculoskeletal: no symptoms reported, see HPI All Other Systems Reviewed Negative Unless Noted: Yes Past Mosppyn-Qmacxw-Namhyx Hx Past Med/Social Hx: Reviewed Nursing Past Med/Soc Hx Patient Social History Alcohol Use: Denies Use Recreational Drug Use: No Smoking Status: Never a Smoker 2nd Hand Smoke Exposure: No Recent Foreign Travel: No Contact w/Someone Who Travel: No Recent Infectious Disease Expo: No Recent Hopitalizations: No Past Medical History Surgeries: Yes (DENTAL) Respiratory: No Cardiac: Yes Hypertension Neurological: Yes (MR) Gastrointestinal: No Musculoskeletal: Yes (spasticity of all extremities, osteopenia) Endocrine: No HEENT: No Cancer: No Psychosocial: No (Intermittent Explosive Disorder, Impulsive Control Disorder) Integumentary: No Physical Exam Vital Signs Vital Signs - First Documented 09/25/19 10:46 Temp 35.6 Pulse 85 Resp 14 B/P (MAP) 131/82 (98) Pulse Ox 97 O2 Delivery Room Air Capillary Refill : Less Than 3 Seconds Height, Weight, BMI Height: 5'5.00" Weight: 160lbs. oz. 72.373234wy; 26.00 BMI Method:Stated General Appearance: WD/WN, no apparent distress HEENT: PERRL/EOMI, normal ENT inspection, TMs normal, pharynx normal, other (head normocephalic with no areas of swelling, tenderness or abrasions.) Neck: non-tender, full range of motion, supple, normal inspection Cardiovascular: normal peripheral pulses, regular rate, rhythm Respiratory: chest non-tender, lungs clear, normal breath sounds Gastrointestinal: normal bowel sounds, non tender, soft Extremities: non-tender, no pedal edema, no calf tenderness, pelvis stable, other (obvious contractures in bilateral lower extremity, caregiver reports these are normal for his baseline. No pain with range of motion to his lower extremities. Pelvis stable, left leg externally rotated but no shortening. Tolerate range of motion to the left hip.) Neurologic/Psychiatric: no motor/sensory deficits, alert Skin: normal color, warm/dry Progress/Results/Core Measures Results/Orders My Orders Orders - ERIKA QUINN Pelvis With Left Hip 2-3 Views (09/25/19 11:12) Vital Signs/I&O 09/25/19 10:46 Temp 35.6 Pulse 85 Resp 14 B/P (MAP) 131/82 (98) Pulse Ox 97 O2 Delivery Room Air Blood Pressure Mean: 98 Diagnostic Imaging Diagonstic Imaging: Xray Plain Films/CT/US/NM/MRI: pelvis, hip Comments NAME: ROSELIA MUNOZ [facility] REC#: [id number] PT STATUS: REG ER : 1955 PHYSICIAN: ERIKA QUINN ADMIT DATE: 09/25/19/ER Draft Date of Exam:09/25/19 PELVIS WITH LEFT HIP 2-3 VIEWS INDICATION: Fall findings AP pelvis and two-view left hip demonstrates no appreciable fracture or dislocation. IMPRESSION: No acute abnormality radiographically apparent. Dictated on workstation # [id number] Dict: 09/25/19 1147 Trans: 09/25/19 1209 [facility] [id number] Interpreted by: MAURO GRIMES Electronically signed by: Reviewed: Reviewed by Me Departure Impression Primary Impression: Fall Qualified Codes: W19.XXXA - Unspecified fall, initial encounter Disposition: HOME, SELF-CARE Condition: Improved Departure-Patient Inst. Decision time for Depature: 11:50 Referrals: RUSTAM LYN MD (PCP) Primary Care Physician JOSSY OSBORNE (Family) Primary Care Physician Patient Instructions: Preventing Falls in the Older Adult Add. Discharge Instructions: Use his gait felt at all times for ambulation. May use Tylenol 650 mg every 6 hours as needed for pain. Follow precautions to prevent falls. Follow-up with his primary care provider if symptoms are not improving or worsen. All discharge instructions reviewed with patient and/or family. Voiced understanding. ERIKA QUINN Sep 25, 2019 11:15
[2019-09-25] MEDS ORDERED: ALEN10TA5 PO (11:20)
[2019-09-25] MEDS ORDERED: QUET300T71 PO (11:21)
[2019-09-25] MEDS ORDERED: LISI1TAB8 PO (11:21)
[2019-09-25] MEDS ORDERED: POLY17PO31 PO (11:21)
[2019-09-25] MEDS ORDERED: QUET50TA55 PO (11:21)
[2019-09-25] MEDS ORDERED: MONT10TA24 PO (11:21)
[2019-09-25] MEDS ORDERED: TERB15CR6 TP (11:23)
[2019-09-25] MEDS ORDERED: CARB15DR87 OT (11:30)
[2019-09-25] MEDS ORDERED: ZOLP10TA5 PO (11:30)
[2019-09-25] MEDS ORDERED: DIAZ10TA3 PO (11:30)
[2019-09-25] MEDS ORDERED: DIAZ5TAB3 PO (11:30)
--- NOTE | 2019-09-25 12:10 | Diagnostic Imaging Report ---
INDICATION: Fall findings AP pelvis and two-view left hip demonstrates no appreciable fracture or dislocation. IMPRESSION: No acute abnormality radiographically apparent. Dictated by: Dictated on workstation # [id number]
[2019-09-25 12:14] VITALS: BP 152/99
== END 2019-09-25 12:15 | disposition home or self-care (01) ==
LOC: EDUNIT# 10:40 → ER 10:41
DX: S09.90XA Unspecified injury of head, initial encounter (principal); I10 Essential (primary) hypertension; F63.81 Intermittent explosive disorder; Z88.8 Allergy status to other drugs, medicaments and biological substances; W18.39XA Other fall on same level, initial encounter

== ENCOUNTER → 2021-04-20 | Outpatient (REF) | payer MEDICAID ==
[~2021-04-20] MED LIST: ALEN10TA8 PO; CARB15DR87 OT; DIAZ10TA3 PO; DIAZ5TAB49 PO; LISI1TAB46 PO; MONT10TA32 PO; POLY17PO54 PO; QUET300T71 PO; QUET50TA22 PO; TERB15CR6 TP; ZOLP10TA5 PO
[2021-04-20 09:23] LABS: BILIRUBIN,URINE NEGATIVE (NEGATIVE); CLARITY,URINE CLOUDY; COLOR,URINE YELLOW; GLUCOSE, URINE (UA) NEGATIVE (NEGATIVE); KETONES,URINE NEGATIVE (NEGATIVE); LEUKOCYTE ESTERASE ,URINE 2+ (NEGATIVE); NITRITE,URINE POSITIVE (NEGATIVE); PROTEIN,URINE TRACE (NEGATIVE)
[2021-04-20 09:27] LABS: BACTERIA,URINE MODERATE /HPF; WBC,URINE >100 /HPF
== END ==
LOC: LAB 08:00
PROVIDERS: ATTEND Internal Medicine
DX: Z01.89 Encounter for other specified special examinations (principal)
CPT/HCPCS: 81000; 87070; 87077; 87088; 87205